=== PATIENT | female | born 1975 | race American Indian/Alaskan Native ===

== ENCOUNTER 2017-09-25 08:51 | Emergency (ER) | payer MEDICAID ==
[2017-09-25] MEDS ORDERED: HYDROGEN PEROXIDE 236 ML BOTTLE TP ONE (09:16)
--- NOTE | 2017-09-25 09:23 | EDPHY ---
H & P Stated Complaint: on ladder /cleaning liht fell hitting face and l forearm/ denies loc or othe - Personal History LMP (Females 10-55): 22-28 Days Ago Current Tetanus Diphtheria and Acellular Pertussis (TDAP): Yes - Medical/Surgical History Hx Asthma: No Hx Chronic Respiratory Disease: No Hx Diabetes: No Hx Cardiac Disease: No Hx Renal Disease: No Hx Cirrhosis: No Hx Alcoholism: No Hx HIV/AIDS: No Hx Splenectomy or Spleen Trauma: No Other PMH: denies - Social History Smoking Status: Current every day smoker Time Seen by Provider: 09/25/17 09:08 HPI/ROS: CHIEF COMPLAINT: Nose injury, left forearm injury after falling off the of indoor ladder HISTORY OF PRESENT ILLNESS: 42-year-old female with no anticoagulant use history , up-to-date tetanus, arrives via private vehicle complaining of left forearm injury and bridge of nose injury after she was standing on a ladder indoors , cleaning a ceiling fan, her feet were approximately 5 ft in the air, the ladder slipped and she fell onto a padded surface. She impacted her left forearm and the bridge of her nose. She is complaining of pain to the both locations. Reproducible pain left forearm with palpation. She denies: Epistaxis, loss of consciousness, alcohol use, amnesia, midline C- spine pain, peripheral paresthesia, weakness, numbness, straddle injury, visual changes, diplopia or abnormal visual acuity PRIMARY CARE PROVIDER: REVIEW OF SYSTEMS: A ten point review of systems was performed and is negative with the exception of the items mentioned in the HPI PAST MEDICAL/SURGICAL HISTORY: no anticoagulant use, no relevant medical/ surgical history SOCIAL HISTORY: denies alcohol use at time of incident PHYSICAL EXAM 1) GENERAL: Well-developed, well-nourished, alert and oriented. There is appears anxious. Answering questions appropriately. GCS 15 2) HEAD: Normocephalic, atraumatic 3) HEENT: Pupils equal, round, reactive to light bilaterally. Bridge of nose 7 mm transverse laceration with soft tissue swelling. Negative Horners. Nasopharynx, oropharynx, clear. No deformity or angulation of nose. No septal hematoma. No rhinorrhea. No oral trauma. Ears bilaterally with normal tympanic membranes. No hemotympanum. No fluid or blood in the external auditory canal. No raccoon eyes. No Castellanos sign. Teeth are normally aligned with no gross malocclusion, TMJ bilaterally nontender, facial bones nontender including the zygomatic arch, maxilla mandible. 4) NECK: No cervical collar is on. Posterior cervical spine is nontender, no stepoff, no effusion. Full range of motion which does not elicit any midline cervical spine pain, no posterior midline tenderness, no step-off. 5) LUNGS: Clear to auscultation bilaterally, no wheezes, no rhonchi, no retractions. No obvious signs of trauma. No chest wall pain. No flaring, no grunting. Moving symmetrically. No crepitus. 6) HEART: [Regular rate and rhythm, 7) ABDOMEN: No guarding, no rebound, no focal tenderness, no peritoneal signs, no signs of trauma, no ecchymosis 8) MUSCULOSKELETAL: Left upper extremity: Tender to palpation mid forearm with abrasion noted. No puncture wound no tenting. The distal neurovascular status is normal with brisk pulses and brisk capillary refill. Soft compartments. Otherwise, Moving all extremities, no focal areas of tenderness, no obvious trauma. 9) BACK: No midline vertebral tenderness, no fluctuance, no step-off, no obvious trauma, no visual or palpable abnormality. 10) SKIN: No laceration. DIFFERENTIAL DIAGNOSIS: In no particular order including but not limited to fracture, sprain, strain, compartment syndrome, nasal fracture, intracranial hemorrhage, skull fracture (Lisbeth,Viviane Rebecca) Constitutional: Initial Vital Signs Temperature (C) 36.9 C 09/25/17 09:01 Heart Rate 90 09/25/17 09:01 Respiratory Rate 17 09/25/17 09:01 Blood Pressure 149/109 H 09/25/17 09:01 O2 Sat (%) 99 09/25/17 09:01 O2 Delivery Mode Room Air Allergies/Adverse Reactions: No Known Allergies Allergy (Verified 09/25/17 09:00) Home Medications: Medication Instructions Recorded Amoxicillin/Clavulanate Pot 875 mg PO BID #10 tab 09/25/17 [Augmentin 875 mg tab] Hydrocodone/APAP 5/325 [[place] 1 tab PO Q6 PRN #10 tab 09/25/17 5/325 (RX)] Medical Decision Making - Diagnostics Imaging Results: Imaging Impressions Forearm X-Ray 09/25/17 09:14 Impression: Normal left forearm series. Images reviewed myself (Viviane Bob) Procedures: Procedure: Splint A left upper extremity sling splint was applied by ER education technician. After application of the splint I returned and re-examined the patient. The splint was adequately immobilizing the joint and distal to the splint the patient's circulation and sensation were intact. Patient shows no signs of compartment syndrome. Was given orthopedic precautions. Procedure: Laceration repair with tissue adhesive Verbal consent was obtained from the patient. The 7 mm laceration on the bridge of nose. The wound was scrubbed and explored to its base with a gloved finger. No foreign body seen, no foreign bodies palpated. There were no deep structures involved. The wound was repaired with tissue adhesive. The procedure was performed by myself. Patient has been informed that scarring will occur, although every effort has been made to minimize this. (Viviane Bob ) ED Course/Re-evaluation: Serial evaluations performed in the ER. Regarding her facial and head injury, she has negative Cymro head and C- spine decision making rules. She has been informed that nasal fracture is not ruled out. Doubt orbital fracture. No evidence of entrapment. No septal hematoma. , no rhinorrhea to suggest CSF leak. I do not think that dedicated imaging of the nasal bones is currently indicated. However have recommend close follow up with ENT and will provide this referral information. I discussed with the patient and she is in agreement with this. Regarding her left forearm there is no evidence of fracture, she has soft compartments. She has been placed in a sling and given orthopedic follow-up information. Patient feels comfortable being discharged. Have offered analgesia in the ER however she is driving and does not want Tylenol and Motrin. Will give her a prescription at discharge and usual and customary precautions regarding analgesia use provided by myself. (Viviane Bob) Other Provider: PHYSICIAN DOCUMENTATION: The patient was evaluated and managed by the Physician Geological Science Teacher. My co- signature indicates that I have reviewed this chart and I agree with the findings and plan of care as documented. I am the secondary supervising physician. (Odell Sung) Departure - Departure Disposition: Home, Routine, Self-Care Clinical Impression: Blunt nasal bone injury, Left forearm pain Laceration of nose Qualifiers: Encounter type: initial encounter Qualified Code(s): S01.21XA - Laceration without foreign body of nose, initial encounter Fall from ladder Qualifiers: Encounter type: initial encounter Qualified Code(s): W11.XXXA - Fall on and from ladder, initial encounter Condition: Good Instructions: Nasal Fracture (ED), Laceration (ED), Arm Pain (ED) Additional Instructions: ALTHOUGH THERE IS NO EVIDENCE OF SERIOUS HEAD INJURY AT THIS TIME, DELAYED SIGNS CAN APPEAR 24 TO 48 HOURS AFTER INJURY. PLEASE RETURN TO THE EMERGENCY DEPARTMENT (ED) IMMEDIATELY IF YOU HAVE INCREASED HEADACHE, PERSISTENT HEADACHE , VOMITING, WEAKNESS, CONFUSION OR VISUAL PROBLEMS. WE RECOMMEND THAT YOU DO NOT RESUME CONTACT SPORTS OR ACTIVITIES THAT TAKE COORDINATION OR BALANCE SUCH SKIING OR RIDING A BICYCLE UNTIL CLEARED TO DO SO BY YOUR DOCTOR OR BY A NEUROLOGIST. Referrals: Kush Ortiz MD [Medical Doctor] - 1-2 days without fail (Dr. Ortiz and his colleagues are ear nose and throat specialists. Please see them for follow- up regarding your nose as you may have broken your nose) Bimal Emery MD [Medical Doctor] - 2-3 days, call for appt. (Dr. Emery is an orthopedic doctor) Prescriptions: Amoxicillin/Clavulanate Pot [Augmentin 875 mg tab] 875 mg PO BID #10 tab Hydrocodone/APAP 5/325 [[place] 5/325 (RX)] 1 tab PO Q6 PRN #10 tab PRN Reason: Pain, Severe
[2017-09-25] MEDS ORDERED: SKIN ADHESIVE (DERMABOND) 1 EACH TP ONE (09:42)
[2017-09-25 10:17] VITALS: BP 128/91
== END 2017-09-25 10:16 | disposition home or self-care (01) ==
PROC: 09QKXZZ Repair Nasal Mucosa and Soft Tissue, External Approach (ICD-10-PCS; principal; 2017-09-25)
DX: S01.21XA Laceration without foreign body of nose, initial encounter (principal); S59.912A Unspecified injury of left forearm, initial encounter; F17.200 Nicotine dependence, unspecified, uncomplicated; W11.XXXA Fall on and from ladder, initial encounter; Y99.8 Other external cause status; Y93.89 Activity, other specified